=== PATIENT | female | born 1955 ===

== ENCOUNTER 2017-10-11 14:03 | Emergency (ER) | payer SELFPAY ==
[2017-10-11 14:16] VITALS: BP 134/80; PULSE 88; RESP 18; TEMP 98.2; O2SAT 96
--- NOTE | 2017-10-11 16:01 | C.PDOC ---
History Of Present Illness 62yo female, with history of hypertension and thyroid disease, presents to ER with complaints of ear stuffiness, sore throat, cough and nasal congestion for the past 2 days. She denies any shortness of breath, headache, neck pain. No other complaints. Time Seen by Provider: 10/11/17 14:37 Chief Complaint (Nursing): ENT Problem History Per: Patient History/Exam Limitations: None Onset/Duration Of Symptoms: Days Current Symptoms Are (Timing): Still Present Past Medical History Reviewed: Historical Data, Nursing Documentation, Vital Signs Vital Signs: Last Vital Signs Temp 98.2 F 10/11/17 14:13 Pulse 88 10/11/17 14:13 Resp 18 10/11/17 14:13 BP 134/80 10/11/17 14:13 Pulse Ox 96 10/11/17 16:02 - Medical History PMH: HTN, Hypercholesterolemia, Hypothyroidism Surgical History: Cholecystectomy - Social History Hx Alcohol Use: No Hx Substance Use: No - Immunization History Hx Tetanus Toxoid Vaccination: No Hx Influenza Vaccination: No Hx Pneumococcal Vaccination: No Review Of Systems Except As Marked, All Systems Reviewed And Found Negative. ENT: Positive for: Ear Pain, Nose Congestion Respiratory: Positive for: Cough. Negative for: Shortness of Breath Musculoskeletal: Negative for: Neck Pain Neurological: Negative for: Headache Physical Exam - Physical Exam Appears: Non-toxic, No Acute Distress Skin: Normal Color Head: Normacephalic Eye(s): bilateral: Normal Inspection Ear(s): Bilateral: Normal Throat: Normal, No Erythema, No Exudate Neck: Normal ROM, Supple Chest: Symmetrical Cardiovascular: Rhythm Irregular Respiratory: Normal Breath Sounds, No Wheezing ED Course And Treatment O2 Sat by Pulse Oximetry: 96 (RA) Pulse Ox Interpretation: Normal Medical Decision Making Medical Decision Making: Impression: Influenza like illness Plan: -- Tylenol 975 mg PO -- Motrin 600 mg PO -- Tamiflu 75 mg PO Patient to be discharged with Tamiflu and instructed to follow up with PCP in 2- 3 days. Disposition Counseled Patient/Family Regarding: Diagnosis, Need For Followup, Rx Given - Disposition Referrals: [facility] at [facility] [Outside] Disposition: HOSPITALIZED Disposition Time: 15:59 Condition: STABLE Prescriptions: Ibuprofen [Motrin] 600 mg PO TID #15 tab Oseltamivir [Tamiflu] 1 cap PO BID #10 cap Instructions: Flu Forms: Gen Discharge Inst [place], [facility] ([place]) - POA Present On Arrival: None - Clinical Impression Clinical Impression: Influenza - Scribe Statement The provider has reviewed the documentation as recorded by the Scribe (Vani Jones) Provider Attestation: All medical record entries made by the Scribe were at my direction and personally dictated by me. I have reviewed the chart and agree that the record accurately reflects my personal performance of the history, physical exam, medical decision making, and the department course for this patient. I have also personally directed, reviewed, and agree with the discharge instructions and disposition.
== END 2017-10-11 16:13 | disposition short-term general hospital (02) ==
LOC: C.ER 14:03
DX: J11.1 Influenza due to unidentified influenza virus with other respiratory manifestations (principal); I10 Essential (primary) hypertension; E78.00 Pure hypercholesterolemia, unspecified; E03.9 Hypothyroidism, unspecified